=== PATIENT | female | born 1990 | race Caucasian/White ===

== ENCOUNTER 2017-10-07 20:59 | Emergency (ER) | payer BC, MEDICAID, OTHER ==
[~2017-10-07] VITALS: Ht 167.6 cm; Wt 116.9 kg
[~2017-10-07 20:59] MED LIST: PREN1TAB56
[2017-10-07 21:30] LABS: HEMATOCRIT 37.6 % (34.6-47.8); WHITE BLOOD COUNT 7.9 x10^3/uL (3.4-10)
[2017-10-07] MEDS ORDERED: IBUPROFEN 200 MG TABLET PO ONE (21:30)
[2017-10-07] MEDS ORDERED: IBUPROFEN 200 MG TABLET ONE (21:36)
[2017-10-07 21:41] LABS: ASPARTATE AMINO TRANSFERASE 23 U/L (15-37); BLOOD UREA NITROGEN 14 mg/dL (7-18)
[2017-10-07 21:47] LABS: IS PT STATUS REG ER OR PRE ER? YES
[2017-10-07 22:37] VITALS: BP 122/64
== END 2017-10-07 22:39 | disposition home or self-care (01) ==
LOC: ED 22:15
DX: R07.9 Chest pain, unspecified (principal)
CPT/HCPCS: 36415; 71020; 80053; 84484; 84703; 85025; 93005; 99285

== ENCOUNTER 2018-05-01 11:09 | Emergency (ER) | payer OTHER ==
[~2018-05-01] VITALS: Ht 172.7 cm; Wt 117.5 kg
[2018-05-01 11:10] VITALS: BP 139/84
== END 2018-05-01 12:11 | disposition home or self-care (01) ==
LOC: ED 12:00
DX: K02.9 Dental caries, unspecified (principal); K08.89 Other specified disorders of teeth and supporting structures
CPT/HCPCS: 99281